=== PATIENT | female | born 1990 | race African-American/Black ===

== ENCOUNTER 2016-07-31 20:33 | Emergency (ER) | payer OTHER ==
[~2016-07-31] VITALS: Ht 175.3 cm; Wt 91.0 kg
[2016-07-31 20:46] VITALS: BP 135/87
== END 2016-07-31 21:00 | disposition left against medical advice (07) ==
LOC: ER 20:33
DX: S61.212A Laceration without foreign body of right middle finger without damage to nail, initial encounter (principal); Z53.21 Procedure and treatment not carried out due to patient leaving prior to being seen by health care provider; X99.8XXA Assault by other sharp object, initial encounter; Y93.89 Activity, other specified; Y99.8 Other external cause status; Y92.89 Other specified places as the place of occurrence of the external cause

== ENCOUNTER 2016-08-25 21:00 | Emergency (ER) | payer OTHER ==
[~2016-08-25] VITALS: Ht 175.3 cm; Wt 91.0 kg
[2016-08-26 01:26] LABS: BASOPHILS % 0.8 % (0.0-2.0); EOSINOPHILS % 1.5 % (0.0-5.0); HEMATOCRIT. 36.3 % (36.0-48.0); HEMOGLOBIN. 12.2 g/dL (12.0-16.0); LYMPHOCYTES % 62.3 % (20.0-50.0); MEAN CORPUSCULAR VOLUME 83.3 fL (81.0-99.0); MEAN PLATELET VOLUME 7.7 fl (7.4-10.4); MONOCYTES % 5.7 % (2.0-8.0); NEUTROPHILS % 29.7 % (40.0-76.0); PLATELET 234 x1000/uL (130-400); RED BLOOD CELL COUNT 4.35 mill/uL (4.2-5.4); RED CELL DISTRIBUTION WIDTH 16.3 % (11.6-14.6)
[2016-08-26 01:29] LABS: CHLORIDE 102 mEq/L (98-107)
[2016-08-26 01:38] LABS: CARBON DIOXIDE 27 mEq/L (21-32)
[2016-08-26 02:49] LABS: CLARITY URINE CLEAR (CLEAR); COLOR URINE YELLOW (YELLOW); GLUCOSE URINE NEGATIVE (NEGATIVE); KETONES URINE NEGATIVE (NEGATIVE); LEUKOCYTE ESTERASE URINE TRACE (NEGATIVE); NITRITE URINE POSITIVE (NEGATIVE); OCCULT BLOOD URINE 1+ (NEGATIVE); PH URINE 7.5 (4.5-8.0); PROTEIN URINE NEGATIVE (NEGATIVE); SPECIFIC GRAVITY URINE 1.012 (1.005-1.030); UROBILINOGEN URINE 0.2 E.U./dL (0.2-1.0)
[2016-08-26 03:13] VITALS: BP 119/75
== END 2016-08-26 04:53 | disposition home or self-care (01) ==
LOC: ER 21:00
DX: N39.0 Urinary tract infection, site not specified (principal); R51 Headache; F17.200 Nicotine dependence, unspecified, uncomplicated; D64.9 Anemia, unspecified; Z98.890 Other specified postprocedural states
CPT/HCPCS: 36415; 80053; 81001; 81025; 85025; 99284; Z7610

== ENCOUNTER 2016-08-27 05:53 | Emergency (ER) | payer OTHER | END 2016-08-27 07:49 | disposition left against medical advice (07) | LOC: ER 07:43 | DX: Z53.21 Procedure and treatment not carried out due to patient leaving prior to being seen by health care provider (principal) ==

== ENCOUNTER 2017-01-05 07:08 | Emergency (ER) | payer OTHER | END 2017-01-05 13:59 | disposition left against medical advice (07) | LOC: ER 07:54 | DX: Z53.21 Procedure and treatment not carried out due to patient leaving prior to being seen by health care provider (principal) ==

== ENCOUNTER 2017-02-25 02:41 | Emergency (ER) | payer OTHER ==
[~2017-02-25] VITALS: Ht 175.3 cm; Wt 82.0 kg
[2017-02-25 02:49] VITALS: BP 138/81
== END 2017-02-25 08:10 | disposition left against medical advice (07) ==
LOC: ER 02:41
DX: L02.91 Cutaneous abscess, unspecified (principal); Z53.21 Procedure and treatment not carried out due to patient leaving prior to being seen by health care provider

== ENCOUNTER 2017-04-17 21:52 | Emergency (ER) | payer MEDICAID, OTHER ==
[~2017-04-17] VITALS: Ht 175.3 cm; Wt 82.0 kg
[2017-04-18 04:43] LABS: BASOPHILS % 0.5 % (0.0-2.0); EOSINOPHILS % 1.3 % (0.0-5.0); HEMATOCRIT. 34.2 % (36.0-48.0); HEMOGLOBIN. 10.6 g/dL (12.0-16.0); LYMPHOCYTES % 54.3 % (20.0-50.0); MEAN CORPUSCULAR HEMOGLOBIN 26.2 pg (28.0-32.0); MEAN CORPUSCULAR VOLUME 84.1 fL (81.0-99.0); MEAN PLATELET VOLUME 7.2 fl (7.4-10.4); MONOCYTES % 7.5 % (2.0-8.0); NEUTROPHILS % 36.4 % (40.0-76.0); PLATELET 289 x1000/uL (130-400); RED BLOOD CELL COUNT 4.07 mill/uL (4.2-5.4); RED CELL DISTRIBUTION WIDTH 14.8 % (11.6-14.6)
[2017-04-18 07:01] VITALS: BP 116/74
== END 2017-04-18 07:10 | disposition home or self-care (01) ==
LOC: ER 22:38
DX: S02.2XXA Fracture of nasal bones, initial encounter for closed fracture (principal); F17.200 Nicotine dependence, unspecified, uncomplicated; F15.10 Other stimulant abuse, uncomplicated; Y08.89XA Assault by other specified means, initial encounter; Y93.89 Activity, other specified; Y92.89 Other specified places as the place of occurrence of the external cause; Y99.8 Other external cause status
CPT/HCPCS: 36415; 70450; 70486; 81025; 85025; 99285

== ENCOUNTER 2017-05-19 03:55 | Emergency (ER) | payer OTHER ==
[~2017-05-19] VITALS: Ht 175.3 cm; Wt 82.0 kg
[2017-05-19] MEDS ORDERED: IBUPROFEN 600MG TABLET PO ONE (07:00)
[2017-05-19 07:11] VITALS: BP 102/64
== END 2017-05-19 07:10 | disposition home or self-care (01) ==
LOC: ER 04:02
DX: S02.2XXA Fracture of nasal bones, initial encounter for closed fracture (principal); S40.012A Contusion of left shoulder, initial encounter; F17.200 Nicotine dependence, unspecified, uncomplicated; Y08.89XA Assault by other specified means, initial encounter; Y93.89 Activity, other specified; Y92.89 Other specified places as the place of occurrence of the external cause; Y99.8 Other external cause status; Z98.890 Other specified postprocedural states
CPT/HCPCS: 70486; 73030; 99284

== ENCOUNTER 2017-05-20 21:13 | Emergency (ER) | payer OTHER ==
[~2017-05-20] VITALS: Ht 170.2 cm; Wt 90.0 kg
[2017-05-20 22:42] VITALS: BP 119/74
== END 2017-05-20 21:50 | disposition left against medical advice (07) ==
LOC: ER 21:13
DX: Z53.21 Procedure and treatment not carried out due to patient leaving prior to being seen by health care provider (principal)

== ENCOUNTER 2017-05-22 03:04 | Emergency (ER) | payer OTHER ==
[~2017-05-22] VITALS: Ht 175.3 cm; Wt 82.0 kg
[2017-05-22] MEDS ORDERED: ACETAMINOPHEN 500MG TABLET PO ONE (08:00)
[2017-05-22 12:10] VITALS: BP 106/62
== END 2017-05-22 12:12 | disposition home or self-care (01) ==
LOC: ER 03:04
DX: S02.2XXA Fracture of nasal bones, initial encounter for closed fracture (principal); Y09 Assault by unspecified means
CPT/HCPCS: 99282

== ENCOUNTER 2017-05-25 09:21 | Emergency (ER) | payer OTHER ==
[~2017-05-25] VITALS: Ht 175.3 cm; Wt 82.0 kg
[2017-05-25 09:23] VITALS: BP 110/79
== END 2017-05-25 10:40 | disposition home or self-care (01) ==
LOC: ER 09:21
DX: S00.83XD Contusion of other part of head, subsequent encounter (principal); F17.200 Nicotine dependence, unspecified, uncomplicated; X58.XXXD Exposure to other specified factors, subsequent encounter
CPT/HCPCS: 99281

== ENCOUNTER 2017-05-25 18:21 | Emergency (ER) | payer OTHER ==
[~2017-05-25] VITALS: Ht 175.3 cm; Wt 82.0 kg
[2017-05-25 18:27] VITALS: BP 126/82
== END 2017-05-25 23:51 | disposition left against medical advice (07) ==
LOC: ER 20:33
DX: R50.9 Fever, unspecified (principal); Z98.890 Other specified postprocedural states
CPT/HCPCS: 99281

== ENCOUNTER 2017-05-27 22:06 | Emergency (ER) | payer OTHER ==
[~2017-05-27] VITALS: Ht 175.3 cm; Wt 81.8 kg
[2017-05-27 22:50] VITALS: BP 137/97
== END 2017-05-28 | disposition left against medical advice (07) ==
LOC: ER 23:24
DX: Z53.21 Procedure and treatment not carried out due to patient leaving prior to being seen by health care provider (principal)

== ENCOUNTER 2017-05-30 03:08 | Emergency (ER) | payer OTHER ==
[~2017-05-30] VITALS: Ht 175.3 cm; Wt 82.0 kg
[2017-05-30 04:23] VITALS: BP 128/90
== END 2017-05-30 05:11 | disposition left against medical advice (07) ==
LOC: ER 03:20
DX: R10.9 Unspecified abdominal pain (principal); Z53.21 Procedure and treatment not carried out due to patient leaving prior to being seen by health care provider

== ENCOUNTER 2017-08-21 22:26 | Emergency (ER) | payer OTHER | END 2017-08-21 22:45 | disposition left against medical advice (07) | LOC: ER 22:26 | DX: F10.129 Alcohol abuse with intoxication, unspecified (principal); Z53.21 Procedure and treatment not carried out due to patient leaving prior to being seen by health care provider ==

== ENCOUNTER 2017-08-22 06:50 | Emergency (ER) | payer OTHER | END 2017-08-22 09:23 | disposition left against medical advice (07) | LOC: ER 06:50 | DX: F10.129 Alcohol abuse with intoxication, unspecified (principal); Z53.21 Procedure and treatment not carried out due to patient leaving prior to being seen by health care provider ==

== ENCOUNTER 2017-09-07 03:57 | Emergency (ER) | payer OTHER ==
[~2017-09-07] VITALS: Ht 175.3 cm; Wt 82.0 kg
[2017-09-07 04:10] VITALS: BP 128/101
== END 2017-09-07 07:34 | disposition left against medical advice (07) ==
LOC: ER 07:32
DX: F10.129 Alcohol abuse with intoxication, unspecified (principal); Z53.21 Procedure and treatment not carried out due to patient leaving prior to being seen by health care provider; Y90.9 Presence of alcohol in blood, level not specified

== ENCOUNTER 2017-09-22 03:33 | Emergency (ER) | payer OTHER ==
[~2017-09-22] VITALS: Ht 175.3 cm; Wt 78.0 kg
[2017-09-22 05:30] VITALS: BP 125/88
[2017-09-22] MEDS ORDERED: ONDANSETRON 4MG ODT PO ONE (08:00)
[2017-09-22 08:55] LABS: CLARITY URINE CLEAR (CLEAR); COLOR URINE YELLOW (YELLOW); KETONES URINE NEGATIVE (NEGATIVE); LEUKOCYTE ESTERASE URINE NEGATIVE (NEGATIVE); NITRITE URINE NEGATIVE (NEGATIVE); OCCULT BLOOD URINE NEGATIVE (NEGATIVE); PH URINE >=9.0 (4.5-8.0); PROTEIN URINE TRACE (NEGATIVE); SPECIFIC GRAVITY URINE 1.025 (1.005-1.030)
[2017-09-26 04:18] LABS: CHLAMYDIA TRACHOMATIS NAA Negative (Negative); NEISSERIA GONORRHOEAE NAA Negative (Negative)
== END 2017-09-22 09:18 | disposition home or self-care (01) ==
LOC: ER 03:33
DX: Z20.2 Contact with and (suspected) exposure to infections with a predominantly sexual mode of transmission (principal); F17.200 Nicotine dependence, unspecified, uncomplicated; Z98.890 Other specified postprocedural states
CPT/HCPCS: 81003; 81025; 87491; 87591; 99284; Q0162

== ENCOUNTER 2019-10-07 20:10 | Emergency (ER) | payer OTHER ==
[~2019-10-07] VITALS: Ht 175.3 cm; Wt 95.0 kg
[2019-10-07 20:21] VITALS: BP 139/98
[2019-10-07] MEDS ORDERED: KETOROLAC 30MG/ML VIAL IM ONE (20:45)
== END 2019-10-07 22:02 | disposition home or self-care (01) ==
LOC: ER 20:10
DX: S99.922A Unspecified injury of left foot, initial encounter (principal); Z98.890 Other specified postprocedural states; X58.XXXA Exposure to other specified factors, initial encounter; Y93.89 Activity, other specified; Y92.89 Other specified places as the place of occurrence of the external cause; Y99.8 Other external cause status
CPT/HCPCS: 73630; 96372; 99283; J1885

== ENCOUNTER 2019-11-14 23:47 | Emergency (ER) | payer OTHER ==
[~2019-11-14] VITALS: Ht 175.3 cm; Wt 104.0 kg
[2019-11-15] MEDS: IBUPROFEN 600MG TABLET PO ONE ×2 (01:30→01:33)
[2019-11-15 02:35] VITALS: BP 139/94
== END 2019-11-15 02:36 | disposition home or self-care (01) ==
LOC: ER 11-15 00:31
DX: M25.472 Effusion, left ankle (principal); M25.471 Effusion, right ankle; R03.0 Elevated blood-pressure reading, without diagnosis of hypertension
CPT/HCPCS: 99282

== ENCOUNTER 2019-12-02 05:02 | Emergency (ER) | payer MEDICAID, OTHER ==
[~2019-12-02] VITALS: Ht 175.3 cm; Wt 91.0 kg
[2019-12-02 05:05] VITALS: BP 151/98
== END 2019-12-02 06:20 | disposition left against medical advice (07) ==
LOC: ER 05:02
DX: M79.89 Other specified soft tissue disorders (principal); Z53.21 Procedure and treatment not carried out due to patient leaving prior to being seen by health care provider

== ENCOUNTER 2020-01-21 20:23 | Emergency (ER) | payer MEDICAID, OTHER ==
[~2020-01-21] VITALS: Ht 175.3 cm; Wt 104.0 kg
[2020-01-21 20:40] VITALS: BP 154/102
== END 2020-01-21 22:15 | disposition home or self-care (01) ==
LOC: ER 20:23
DX: D17.20 Benign lipomatous neoplasm of skin and subcutaneous tissue of unspecified limb (principal)
CPT/HCPCS: 81025; 93005; 99283

== ENCOUNTER 2020-01-26 23:54 | Emergency (ER) | payer OTHER ==
[~2020-01-26] VITALS: Ht 172.7 cm; Wt 82.0 kg
[2020-01-27 00:06] VITALS: BP 132/70
== END 2020-01-27 00:57 | disposition left against medical advice (07) ==
LOC: ER 23:54
DX: S62.613A Displaced fracture of proximal phalanx of left middle finger, initial encounter for closed fracture (principal); S62.603A Fracture of unspecified phalanx of left middle finger, initial encounter for closed fracture; W34.09XA Accidental discharge from other specified firearms, initial encounter; Y93.89 Activity, other specified; Y92.89 Other specified places as the place of occurrence of the external cause; Y99.8 Other external cause status; D64.9 Anemia, unspecified; Z98.890 Other specified postprocedural states
CPT/HCPCS: 99283

== ENCOUNTER 2020-03-26 09:30 | Emergency (ER) | payer OTHER ==
[~2020-03-26] VITALS: Ht 175.3 cm; Wt 90.7 kg
[2020-03-26 09:37] VITALS: BP 123/90
== END 2020-03-26 11:28 | disposition left against medical advice (07) ==
LOC: ER 09:30
DX: R51.9 Headache, unspecified (principal); I49.9 Cardiac arrhythmia, unspecified; Z53.21 Procedure and treatment not carried out due to patient leaving prior to being seen by health care provider
CPT/HCPCS: 93005; 99283

== ENCOUNTER 2020-10-20 22:22 | Emergency (ER) | payer OTHER | END 2020-10-20 23:41 | disposition left against medical advice (07) | LOC: ER 22:22 | DX: Z53.21 Procedure and treatment not carried out due to patient leaving prior to being seen by health care provider (principal) ==

== ENCOUNTER 2020-11-11 01:07 | Emergency (ER) | payer OTHER ==
[~2020-11-11] VITALS: Ht 175.3 cm; Wt 87.0 kg
[2020-11-11] MEDS ORDERED: KETOROLAC 60MG/2ML VIAL IM ONE (02:30)
[2020-11-11] MEDS ORDERED: ACETAMINOPHEN 500MG TABLET PO ONE (03:00)
[2020-11-11 04:00] VITALS: BP 134/100
== END 2020-11-11 04:00 | disposition home or self-care (01) ==
LOC: ER 01:07
DX: J06.9 Acute upper respiratory infection, unspecified (principal); R03.0 Elevated blood-pressure reading, without diagnosis of hypertension; Z20.822 Contact with and (suspected) exposure to COVID-19
CPT/HCPCS: 71045; 81025; 87426; 87804; 99284; J1885

== ENCOUNTER 2020-12-31 18:56 | Emergency (ER) | payer MEDICAID, OTHER | END 2020-12-31 21:53 | disposition left against medical advice (07) | LOC: ER 18:56 | DX: Z53.21 Procedure and treatment not carried out due to patient leaving prior to being seen by health care provider (principal) ==

== ENCOUNTER 2021-01-23 04:35 | Emergency (ER) | payer MEDICAID ==
[~2021-01-23] VITALS: Ht 154.9 cm; Wt 91.0 kg
[2021-01-23 04:49] VITALS: BP 136/100
[2021-01-23 05:44] LABS: CLARITY URINE CLEAR (CLEAR); COLOR URINE YELLOW (YELLOW); KETONES URINE NEGATIVE (NEGATIVE); LEUKOCYTE ESTERASE URINE TRACE (NEGATIVE); NITRITE URINE NEGATIVE (NEGATIVE); OCCULT BLOOD URINE 3+ (NEGATIVE); PROTEIN URINE NEGATIVE (NEGATIVE); SPECIFIC GRAVITY URINE 1.013 (1.005-1.030); UROBILINOGEN URINE 0.2 E.U./dL (0.2-1.0)
[2021-01-26 04:07] LABS: NEISSERIA GONORRHOEAE NAA Negative (Negative)
== END 2021-01-23 05:28 | disposition left against medical advice (07) ==
LOC: ER 04:35
DX: A59.9 Trichomoniasis, unspecified (principal); Z98.890 Other specified postprocedural states
CPT/HCPCS: 81003; 81025; 87491; 87591; 99283